=== PATIENT | female | born 1990 | race Caucasian/White ===

== ENCOUNTER 2023-10-10 18:19 | Emergency (ER) | payer BC ==
[~2023-10-10 18:19] MED LIST: Iopamidol 300 61% 100 ML VIAL FS ONE
[2023-10-10] MEDS ORDERED: Dicyclomine 20 MG TAB PO SCH (19:30)
[2023-10-10] MEDS ORDERED: Dicyclomine 20 MG TAB ONE (19:30)
[2023-10-10] MEDS ORDERED: Lidocaine 2% Viscous 10 mL, Alum & Magn 30 mL SSW SCH (19:30)
[2023-10-10 19:34] LABS: #Eosinphils 0.1 10x3/uL (0.0-0.5); #Monocytes 0.6 10x3/uL (0.0-1.1); #Neutrophils 4.9 10x3/uL (1.5-8.4); %Basophils 0.2 % (0.0-2.0); %Eosinophils 0.7 % (0.0-6.0); %Lymphocytes 33.7 % (18.0-47.0); %Monocytes 6.9 % (0.0-10.0); %Neutrophils 58.3 % (40.0-75.0); Hematocrit 39.3 % (34.9-44.5); Hemoglobin 13.3 g/dL (12.0-15.5); Mean Corpuscular HGB CONC 33.8 g/dL (32.0-36.0); Mean Corpuscular Hemoglobin 30.8 pg (27.0-33.0); Platelet Count 295 10x3/uL (150-450); RBC Distribution Width 12.1 % (11.5-14.5); Red Blood Cell (RBC) Count 4.32 10x6/uL (3.90-5.03); White Blood Cell (WBC) Count 8.5 10x3/uL (3.5-10.5)
[2023-10-10 19:47] LABS: ALT (SGPT) 8 U/L (8-55); AST (SGOT) 11 U/L (5-34); Alkaline Phosphatase 48 U/L (40-110); Anion Gap 12 mmol/L (10-20); BUN (Urea Nitrogen) 9 mg/dL (7.0-18.7); Bilirubin, Total 0.4 mg/dL (0.2-1.2); Calc. Creatinine Clearance 0 mL/min (70-130); Calcium 8.9 mg/dL (7.8-10.44); Carbon Dioxide 25 mmol/L (22-29); Chloride 105 mmol/L (98-107); Estimated GFR 89; Globulin 2.6 g/dL (2.4-3.5); Glucose 92 mg/dL (70-105); Lipase 22 U/L (8-78); Potassium 4.3 mmol/L (3.5-5.1); Protein, Total 6.6 g/dL (6.0-8.3); Sodium 138 mmol/L (136-145)
== END 2023-10-10 21:23 | disposition home or self-care (01) ==
LOC: CSHERS 18:19
DX: R10.11 Right upper quadrant pain (principal); F17.290 Nicotine dependence, other tobacco product, uncomplicated
CPT/HCPCS: 36415; 74177; 80053; 83690; 85025; 93005; Q9967

== ENCOUNTER 2024-09-06 14:52 | Emergency (ER) | payer BC ==
[2024-09-06 15:42] LABS: Bilirubin Neg (Negative); Blood, Urine Negative (Negative); Clarity Slightly Cloudy (Clear); Glucose, Urine (Dipstick) Normal (Negative); Ketone, Urine 50 mg/dL (Negative); Leukocyte Negative (Negative); Nitrite Negative (Negative); Protein, Urine (Dipstick) 15 mg/dl (Neg-Trace); Specific Gravity, Urine 1.025 (1.005-1.030)
[2024-09-06 15:43] LABS: #Basophils 0.04 10x3/uL (0.0-0.2); #Eosinophils 0.05 10x3/uL (0.0-0.5); #Monocytes 0.48 10x3/uL (0.0-1.1); #Neutrophils 5.12 10x3/uL (1.5-8.4); %Basophils 0.5 % (0.0-2.0); %Eosinophils 0.7 % (0.0-6.0); %Monocytes 6.3 % (0.0-10.0); %Neutrophils 67.4 % (40.0-75.0); Hematocrit 41.3 % (34.9-44.5); Hemoglobin 14.2 g/dL (12.0-15.5); Mean Corpuscular HGB CONC 34.4 g/dL (32.0-36.0); Mean Corpuscular Hemoglobin 30.7 pg (27.0-33.0); Mean Corpuscular Volume 89.4 fL (81.6-98.3); Mean Platelet Volume 9.8 fL (7.4-10.4); Platelet Count 333 10x3/uL (150-450); RBC Distribution Width 12.7 % (11.5-14.5); Red Blood Cell (RBC) Count 4.62 10x6/uL (3.90-5.03)
[2024-09-06 15:50] LABS: BHCG - Serum Negative (NEGATIVE); Pregs Control Background? CLEAR/WHITE (CLR/WHITE); Pregs Control Bar Appear? YES (CONTROL BAR)
[2024-09-06] MEDS ORDERED: Ondansetron PF 4 MG/2 ML Vial ONE (15:50)
[2024-09-06] MEDS ORDERED: Morphine 4 MG/ML VIAL ONE ×2 (15:50→18:19)
[2024-09-06] MEDS ORDERED: Famotidine/PF 20 mg/2ml Vial ONE (15:51)
[2024-09-06 15:58] LABS: ALT (SGPT) 15 U/L (8-55); AST (SGOT) 14 U/L (5-34); Alkaline Phosphatase 46 U/L (40-110); Anion Gap 13 mmol/L (10-20); BUN (Urea Nitrogen) 9 mg/dL (7.0-18.7); Bilirubin, Total 0.8 mg/dL (0.2-1.2); Calc. Creatinine Clearance 0 mL/min (70-130); Calcium 9.5 mg/dL (7.8-10.44); Carbon Dioxide 24 mmol/L (22-29); Chloride 107 mmol/L (98-107); Estimated GFR 96; Globulin 3.4 g/dL (2.4-3.5); Glucose 127 mg/dL (70-105); Lipase 22 U/L (8-78); Potassium 3.9 mmol/L (3.5-5.1); Protein, Total 7.4 g/dL (6.0-8.3); Sodium 140 mmol/L (136-145)
[2024-09-06 15:59] LABS: CAUTI Indications for Culture Pelvic or flank pain; RBC/HPF 0-3 HPF (0-3); WBC/HPF 0-3 HPF (0-3)
[2024-09-06 16:00] LABS: Bacteria/HPF Rare-Few HPF (None Seen); Mucous/LPF 3+ LPF (<2+)
[2024-09-06 16:01] LABS: Urine Culture Reflex No No
== END 2024-09-06 18:43 | disposition home or self-care (01) ==
LOC: CSHERS 14:52
DX: N83.201 Unspecified ovarian cyst, right side (principal); R11.0 Nausea
CPT/HCPCS: 74177; 76856; 80053; 81001; 83690; 84703; 85025; 96374; 96375; 96376; J2270; J2405; J3490; Q9967

== ENCOUNTER 2025-04-22 11:57 | Outpatient (CLI) | payer BC ==
[2025-04-22 12:47] LABS: #Basophils Less than 0.03 10x3/uL (0.0-0.2); #Eosinophils 0.03 10x3/uL (0.0-0.5); #Monocytes 0.31 10x3/uL (0.0-1.1); #Neutrophils 2.03 10x3/uL (1.5-8.4); %Basophils 0.2 % (0.0-2.0); %Eosinophils 0.7 % (0.0-6.0); %Lymphocytes 47.8 % (18.0-47.0); %Monocytes 6.8 % (0.0-10.0); %Neutrophils 44.5 % (40.0-75.0); Hematocrit 37.3 % (34.9-44.5); Hemoglobin 12.6 g/dL (12.0-15.5); Mean Corpuscular Hemoglobin 30.1 pg (27.0-33.0); Mean Corpuscular Volume 89.2 fL (81.6-98.3); Platelet Count 261 10x3/uL (150-450); Red Blood Cell (RBC) Count 4.18 10x6/uL (3.90-5.03); White Blood Cell (WBC) Count 4.56 10x3/uL (3.5-10.5)
[2025-04-22 13:03] LABS: Anion Gap 14 mmol/L (10-20); BUN (Urea Nitrogen) 11 mg/dL (7.0-18.7); Calc. Creatinine Clearance 0 mL/min (70-130); Calcium 9.3 mg/dL (7.8-10.44); Carbon Dioxide 25 mmol/L (22-29); Chloride 106 mmol/L (98-107); Glucose 80 mg/dL (70-105); Potassium 4.3 mmol/L (3.5-5.1); Sodium 141 mmol/L (136-145)
[2025-04-22 18:10] LABS: BHCG - Serum Negative (NEGATIVE); Pregs Control Background? CLEAR/WHITE (CLR/WHITE); Pregs Control Bar Appear? YES (CONTROL BAR)
== END 2025-04-22 11:58 | disposition home or self-care (01) ==
LOC: CSHLAB 11:57
PROVIDERS: ATTEND Specialist
DX: Z01.812 Encounter for preprocedural laboratory examination (principal); M79.3 Panniculitis, unspecified
CPT/HCPCS: 80048; 84703; 85025

== ENCOUNTER 2025-04-30 05:59 | Day surgery (SDC) | payer BC ==
[2025-04-22 12:24] VITALS: BMI 26.4
[2025-04-30] MEDS ORDERED: Ketorolac Tromethamine 30 MG (1 mL) VIAL ONE (06:37)
[2025-04-30] MEDS ORDERED: Acetaminophen 500 MG TAB ONE (06:38)
[2025-04-30] MEDS ORDERED: CEFAZOLIN 2 GM VIAL ONE (07:00)
[2025-04-30] MEDS ORDERED: Bupivacaine/Epinephrine 0.25% 30 ML VIAL ONE (07:00)
[2025-04-30] MEDS ORDERED: PHENYLEPHRINE-NS 100 MCG/ML 10 ML SYRINGE ONE ×3 (07:38→09:11)
[2025-04-30] MEDS ORDERED: Ondansetron PF 4 MG/2 ML Vial ONE (08:24)
[2025-04-30] MEDS ORDERED: Lidocaine 1% PF 5 ML VIAL ONE (08:24)
== END 2025-04-30 11:10 | disposition home or self-care (01) ==
LOC: CSHSDC 05:59
PROVIDERS: ATTEND Specialist
PROC: 0HB7XZZ Excision of Abdomen Skin, External Approach (ICD-10-PCS; principal; 2025-04-30)
DX: M79.3 Panniculitis, unspecified (principal); E11.9 Type 2 diabetes mellitus without complications; L30.4 Erythema intertrigo; Z79.85 Long-term (current) use of injectable non-insulin antidiabetic drugs; Z88.8 Allergy status to other drugs, medicaments and biological substances
CPT/HCPCS: 88305; A6258; J1100; J1885; J2405; J2704; J3010